=== PATIENT | male | born 1960 | race Caucasian/White ===

== ENCOUNTER 2017-01-28 09:15 | Observation (INO) | payer OTHER ==
[~2017-01-28] VITALS: Ht 180.3 cm; Wt 71.9 kg
[2017-01-28] VITALS (9 sets, daily range): BP systolic 128–152; BP diastolic 79–96
--- NOTE | ~2017-01-28 | O ---
[facility] [place] [address] OPERATIVE REPORT Name: SLADE MCARTHUR [id number] Admission: 01/28/17 Attend Phys: Bryson Saxena MD, Discharge: 01/28/17 Date of : 60 Report #: [id number] THIS REPORT FOR: //name// CC: GINNY physician/PCP Bryson Saxena DATE OF SERVICE: 01/28/2017 PREOPERATIVE DIAGNOSIS: Foreign body in the rectum. POSTOPERATIVE DIAGNOSIS: Foreign body in the rectum. PROCEDURE: Anoscopy with removal of foreign body of the rectum. SURGEON: Armando Schwab M.D. MINING TEACHER: Gareth Obrien DO. INDICATIONS: A 56-year-old male who has lodged a glass device in the rectum, which was being utilized for prostatic massage during sexual intercourse. The patient has been unable to extract the device even following use of laxatives to induced diarrhea. He now presents for removal. DESCRIPTION OF PROCEDURE: The patient had a thorough discussion of the procedure, benefits and risks, including the possibility of exploratory laparotomy and colotomy for removal. The patient gave informed consent to proceed. He was brought to the operating room suite and had satisfactory induction of general endotracheal anesthesia. He was placed in lithotomy position. Initially, rectal exam demonstrated the solid glass object to be approximately 6 cm in the anal canal. The rectal sphincters were stretched with manual dilation. The glass object was grasped, which had a small circumferential ring-like structure. The device was extracted with great degree of difficulty to manipulate through the sphincters of the rectum. After the device was removed, it was found to be solid glass. The base was 4.5 cm. The length was approximately 8 cm. The anoscope was then introduced. There were small fissures at the 6 position and 12 position. Slight amount of bloody mucoid fluid was present. No significant tears were present of the rectal sphincter, like mucosa. Surgicel with Xylocaine jelly was wrapped in cigarette form and placed inside the anal canal. The patient tolerated the procedure well and returned to recovery room in stable and satisfactory condition. By: [id number] Armando Schwab MD, FACS /nt
--- NOTE | ~2017-01-28 | S ---
[facility] [place] [address] SURGICAL PATH RPT PROCEDURE Name: SLADE PALOMINO Room #: 427-P [facility] Andrea Lawson#: [id number] Admission: 01/28/17 Date of : 60 Discharge: 01/28/17 Report #: [id number] Path Case #: [id number] PATHOLOGY REPORT COLLECTION DATE: 01/28/2017 RECEIVED DATE: 01/28/2017 SUBMITTING PHYS: Dr. Armando Schwab OTHER PHYS: Dr. Bryson Obrien, SPECIMEN(S) RECEIVED: A.Foreign body in rectum * * * * * * * * * * * * FINAL DIAGNOSIS: "Foreign body in rectum," removal: - Glass object consistent with foreign body (gross examination only; see gross description). (CLW:mgr; 01/31/2017) PATHOLOGIST: Roxana Kitchen M.D. REPORT ELECTRONICALLY SIGNED BY: Roxana Kitchen M.D. DATE/TIME: 01/31/2017 22:19 * * * * * * * * * * * * GROSS PATHOLOGY: The specimen is received fresh, labeled "Slade Palomino, foreign body from rectum". Received is a spade-shaped segment of clear glass measuring 7.6 x 4.4 x 4.4 cm in greatest dimensions. A gross photograph is taken. Sections are not submitted. (CAA; 01/31/2017) CLINICAL HISTORY: Rectal foreign body INITIAL CPT CODE(S): A; 41721 Professional services performed by [facility] at [facility] [address] [place] [address] Technical services performed by [facility] at [address] [place] [id number]. [facility] [address] [place] [address] SURGICAL PATH RPT PROCEDURE Name: SLADE PALOMINO Room #: 427-P JOSE Lawson#: [id number] Admission: 01/28/17 Date of : 60 Discharge: 01/28/17 Report #: [id number] Path Case #: [id number] [address] PHONE: [phone] DIRECTOR: Bill Pederson M.D. * * * END OF REPORT * * *
[2017-01-28 10:27] LABS: CALCIUM 9.5 mg/dL (8.5-10.1); CREATININE 0.8 mg/dL (0.7-1.3); POTASSIUM 4.2 mmol/L (3.5-5.1)
[2017-01-28 10:57] LABS: ANISOCYTOSIS SLIGHT; ATYPICAL LYMPHS 1 %; PLATELET COUNT 180 thou/uL (150-400); POIKILOCYTOSIS SLIGHT; TOTAL CELL COUNT 100
[2017-01-28 11:03] LABS: HEMATOCRIT 39.1 % (42.0-52.0); HEMOGLOBIN 14.1 gm/dL (14.0-18.0); MCH 33.8 pg (26.0-34.0); MCV 93.8 fL (80.0-100.0); RBC 4.16 mil/uL (4.50-6.00); RDW 13.3 % (10.5-14.5); WBC 4.3 thou/uL (4.0-11.0)
[2017-01-28 11:05] LABS: MANUAL DIFF YES
[2017-01-28 11:06] LABS: ABSOLUTE NEUTROPHILS 3.4 thou/uL (1.4-8.2)
[2017-01-28] MEDS ORDERED: ASPIR 8181 MG PO (11:34)
[2017-01-28] MEDS ORDERED: UNICOMPLEX M TA1 TA1 PO (11:35)
== END 2017-01-28 17:25 | disposition home or self-care (01) ==
LOC: ER 09:15 → 4E 09:57 → EROBS 09:57 → 4E 11:08
PROVIDERS: Physician Assistant
DX: T18.5XXA Foreign body in anus and rectum, initial encounter (principal); R10.9 Unspecified abdominal pain; X58.XXXA Exposure to other specified factors, initial encounter; Y93.89 Activity, other specified; Y92.89 Other specified places as the place of occurrence of the external cause; Y99.8 Other external cause status
CPT/HCPCS: 50010; 50101; 50455; 56639; 62110; 62900; 70005